=== PATIENT | male | born 1925 | race Caucasian/White ===

== ENCOUNTER 2016-06-09 18:34 | Inpatient (IN) | payer MEDICARE ==
[~2016-06-09] VITALS: Ht 177.8 cm; Wt 84.1 kg
[2016-06-09] MEDS ORDERED: BLOOD PRESSURE PO (19:07)
[2016-06-09] MEDS ORDERED: WARF1 PO (19:07)
[2016-06-09] MEDS ORDERED: DIURETIC PO (19:07)
[2016-06-09 20:03] LABS: INFLUENZA TYPE B NEGATIVE FOR TYPE B (NEGATIVE)
[2016-06-09] MEDS ORDERED: ONDANSETRON HCL 4 MG/2 ML VIAL IVP ONE (20:45)
[2016-06-09] MEDS ORDERED: 0.9% SODIUM CHLORIDE 5 ML NEB SOLUTION NEB ONE (21:57)
[2016-06-09] MEDS ORDERED: ALBUTEROL SULFATE 5 MG/ML 20 ML NEB SOLN [BULK] NEB ONE (22:00)
[2016-06-09] MEDS ORDERED: IPRATROPIUM BROMIDE 0.5 MG/2.5 ML NEB SOLUTION NEB ONE (22:00)
[2016-06-09] MEDS ORDERED: ACETAMINOPHEN 325 MG TABLET PO PRN (22:15)
[2016-06-09] MEDS ORDERED: IPRATROPIUM BROMIDE 0.5 MG/2.5 ML NEB SOLUTION NEB PRN (22:15)
[2016-06-09] MEDS ORDERED: ALBUTEROL SULFATE 2.5 MG/0.5 ML NEB SOLUTION NEB PRN (22:15)
[2016-06-09 22:28] LABS: BASOPHILS # (AUTO) 0.01 K/uL (0.00-0.20); BASOPHILS % (AUTO) 0.2 % (0.0-2.0); EOSINOPHILS # (AUTO) 0.01 K/uL (0.00-0.70); EOSINOPHILS % (AUTO) 0.18 % (1.0-6.0); HEMATOCRIT 41.9 % (41-53); HEMOGLOBIN 13.9 g/dL (13.5-17.5); LYMPHOCYTES # (AUTO) 0.3 K/uL (1.0-4.8); LYMPHOCYTES % (AUTO) 4.5 % (22.0-44.0); MEAN CORPUSCULAR HEMOGLOBIN 30.5 pg (26.0-34.0); MEAN CORPUSCULAR HGB CONC 33.1 G/dL (31.0-37.0); MEAN CORPUSCULAR VOLUME 92 fL (80-100); MONOCYTES # (AUTO) 0.9 K/uL (0.1-1.0); MONOCYTES % (AUTO) 13.6 % (2.0-9.0); NEUTROPHILS # (AUTO) 5.5 K/uL (1.8-7.7); NEUTROPHILS % (AUTO) 81.5 % (40.0-70.0); PLATELET COUNT (AUTO) 119 K/uL (150-450); RED BLOOD CELL COUNT(AUTO) 4.56 MIL/uL (4.50-5.90); RED CELL DISTRIBUTION WIDTH 14.6 % (11.5-14.5); WHITE BLOOD COUNT (AUTO) 6.8 K/uL (4.5-11.0)
[2016-06-09 22:41] LABS: INR 2.2 (0.9-1.1)
[2016-06-09 23:00] LABS: ANION GAP 10 mmol/L (8-16); CALCIUM, TOTAL 8.6 mg/dL (8.8-10.5); CARBON DIOXIDE 28 mmol/L (22-29); CHLORIDE 103 mmol/L (98-107); CREATININE 1.47 mg/dL (0.60-1.30); GLOMERULAR FILTR. RATE CALC 45 mL/min (>60); POTASSIUM 4.1 mmol/L (3.5-5.1); SODIUM SERUM 141 mmol/L (136-145); UREA NITROGEN, BLOOD 30 mg/dL (7-18)
[2016-06-09 23:01] LABS: B-TYPE NATRIURETIC PEPTIDE 560 pg/mL (0-100)
[2016-06-09 23:24] LABS: ALANINE AMINOTRANSFERASE 26 U/L (12-78); ALBUMIN 3.2 g/dL (3.4-5.0); ASPARTATE AMINOTRANSFERASE 39 U/L (15-37); BILIRUBIN,TOTAL 0.6 mg/dL (0.1-1.0); CREATINE KINASE MB 2.2 ng/mL (0-5); CREATINE KINASE, TOTAL 110 U/L (39-308); TOTAL PROTEIN, SERUM 6.4 g/dL (6.4-8.2)
[2016-06-09 23:41] VITALS: BP 112/47
[2016-06-10] MEDS ORDERED: PNEUMOCOCCAL VACCINE POLYVALENT 0.5 ML VIAL [PPSV23] IM ONE (00:30)
[2016-06-10 04:29] VITALS: BP 109/52
[2016-06-10 07:19] LABS: CALCIUM, TOTAL 8.4 mg/dL (8.8-10.5); CREATININE 1.61 mg/dL (0.60-1.30); POTASSIUM 3.6 mmol/L (3.5-5.1)
[2016-06-10 07:21] LABS: BASOPHILS % (AUTO) 0.2 % (0.0-2.0); EOSINOPHILS % (AUTO) 0.1 % (1.0-6.0); HEMATOCRIT 42.2 % (41-53); HEMOGLOBIN 13.8 g/dL (13.5-17.5); LYMPHOCYTES # (AUTO) 0.3 K/uL (1.0-4.8); MEAN CORPUSCULAR HEMOGLOBIN 30.4 pg (26.0-34.0); MEAN CORPUSCULAR HGB CONC 32.7 G/dL (31.0-37.0); MEAN CORPUSCULAR VOLUME 93 fL (80-100); MONOCYTES # (AUTO) 1.1 K/uL (0.1-1.0); MONOCYTES % (AUTO) 19.1 % (2.0-9.0); NEUTROPHILS # (AUTO) 4.1 K/uL (1.8-7.7); NEUTROPHILS % (AUTO) 74.6 % (40.0-70.0); PLATELET COUNT (AUTO) 113 K/uL (150-450); RED BLOOD CELL COUNT(AUTO) 4.54 MIL/uL (4.50-5.90); RED CELL DISTRIBUTION WIDTH 15.3 % (11.5-14.5); WHITE BLOOD COUNT (AUTO) 5.5 K/uL (4.5-11.0)
[2016-06-10 07:36] VITALS: BP 101/58
[2016-06-10] MEDS: DOCUSATE SODIUM 100 MG CAPSULE PO SCH ×2 (09:41→20:50)
[2016-06-10] MEDS: FUROSEMIDE 20 MG/2 ML VIAL IVP SCH ×2 (09:41→20:50)
[2016-06-10] MEDS: PANTOPRAZOLE SODIUM 40 MG DR TABLET PO SCH (09:41)
[2016-06-10] MEDS: NITROGLYCERIN 2% (1 GM=INCH) PACKET TP SCH ×3 (09:41→23:42)
[2016-06-10 11:34] VITALS: BP 98/46
[2016-06-10] MEDS: LISINOPRIL 5 MG TABLET PO SCH (13:45)
[2016-06-10] MEDS ORDERED: ONDANSETRON HCL 4 MG/2 ML VIAL IVP PRN (15:30)
[2016-06-10 15:48] VITALS: BP 123/75
[2016-06-10 19:48] VITALS: BP 116/47
[2016-06-10] MEDS: WARFARIN SODIUM 1 MG TABLET PO SCH (20:50)
[2016-06-10 23:38] VITALS: BP 130/54
[2016-06-11 05:00] VITALS: BP 126/73
[2016-06-11 06:47] LABS: BASOPHILS % (AUTO) 0.1 % (0.0-2.0); EOSINOPHILS % (AUTO) 0.7 % (1.0-6.0); HEMATOCRIT 43.9 % (41-53); LYMPHOCYTES # (AUTO) 0.5 K/uL (1.0-4.8); LYMPHOCYTES % (AUTO) 7.7 % (22.0-44.0); MEAN CORPUSCULAR HEMOGLOBIN 29.7 pg (26.0-34.0); MEAN CORPUSCULAR HGB CONC 31.8 G/dL (31.0-37.0); MEAN CORPUSCULAR VOLUME 93 fL (80-100); MONOCYTES # (AUTO) 0.9 K/uL (0.1-1.0); MONOCYTES % (AUTO) 16.1 % (2.0-9.0); NEUTROPHILS # (AUTO) 4.4 K/uL (1.8-7.7); NEUTROPHILS % (AUTO) 75.4 % (40.0-70.0); PLATELET COUNT (AUTO) 107 K/uL (150-450); RED CELL DISTRIBUTION WIDTH 15.2 % (11.5-14.5); WHITE BLOOD COUNT (AUTO) 5.9 K/uL (4.5-11.0)
[2016-06-11 07:06] LABS: ALBUMIN 3.1 g/dL (3.4-5.0); BILIRUBIN,TOTAL 0.7 mg/dL (0.1-1.0); CALCIUM, TOTAL 8.6 mg/dL (8.8-10.5); CREATININE 1.4 mg/dL (0.60-1.30); MAGNESIUM 1.8 mg/dL (1.80-2.40); POTASSIUM 4.2 mmol/L (3.5-5.1); TOTAL PROTEIN, SERUM 6.3 g/dL (6.4-8.2)
[2016-06-11 07:22] VITALS: BP 132/97
[2016-06-11] MEDS: DOCUSATE SODIUM 100 MG CAPSULE PO SCH ×2 (08:08→20:06)
[2016-06-11] MEDS: PANTOPRAZOLE SODIUM 40 MG DR TABLET PO SCH (08:09)
[2016-06-11] MEDS: FUROSEMIDE 20 MG/2 ML VIAL IVP SCH ×2 (08:09→20:06)
[2016-06-11] MEDS: NITROGLYCERIN 2% (1 GM=INCH) PACKET TP SCH ×3 (08:09→23:54)
[2016-06-11] MEDS: LISINOPRIL 5 MG TABLET PO SCH (08:10)
[2016-06-11 11:18] VITALS: BP 139/74
[2016-06-11 12:54] LABS: PHOSPHORUS 3.1 mg/dL (2.5-4.9)
[2016-06-11 15:56] VITALS: BP 119/59
[2016-06-11 19:55] VITALS: BP 129/56
[2016-06-11] MEDS: WARFARIN SODIUM 1 MG TABLET PO SCH (20:06)
[2016-06-11 23:59] VITALS: BP 141/69
[2016-06-12 03:59] VITALS: BP 136/71
[2016-06-12 07:16] VITALS: BP 126/55
[2016-06-12 07:18] LABS: CREATINE KINASE MB 6.2 ng/mL (0-5)
[2016-06-12] MEDS: DOCUSATE SODIUM 100 MG CAPSULE PO SCH ×2 (08:49→21:55)
[2016-06-12] MEDS: FUROSEMIDE 20 MG/2 ML VIAL IVP SCH ×2 (08:50→21:55)
[2016-06-12] MEDS: PANTOPRAZOLE SODIUM 40 MG DR TABLET PO SCH (08:50)
[2016-06-12] MEDS: NITROGLYCERIN 2% (1 GM=INCH) PACKET TP SCH ×2 (08:50→15:58)
[2016-06-12] MEDS: LISINOPRIL 5 MG TABLET PO SCH (08:50)
[2016-06-12 11:07] VITALS: BP 147/67
[2016-06-12] MEDS ORDERED: LEVALBUTEROL HCL 0.63 MG/3 ML NEB SOLUTION NEB PRN (12:00)
[2016-06-12 15:28] VITALS: BP 129/53
[2016-06-12] MEDS ORDERED: 0.9% SODIUM CHLORIDE 5 ML NEB SOLUTION NEB ONE (19:03)
[2016-06-12] MEDS: IPRATROPIUM BROMIDE 0.5 MG/2.5 ML NEB SOLUTION NEB PRN (19:07)
[2016-06-12 19:21] VITALS: BP 128/51
[2016-06-12] MEDS: TIOTROPIUM BROMIDE 18 MCG/INH HANDIHALER [5] IH SCH (21:55)
[2016-06-12] MEDS: WARFARIN SODIUM 1 MG TABLET PO SCH (21:55)
[2016-06-12] MEDS: BUDESONIDE 0.5 MG/2 ML NEB SOLUTION NEB SCH (23:07)
[2016-06-12 23:23] VITALS: BP 121/53
[2016-06-13] MEDS: NITROGLYCERIN 2% (1 GM=INCH) PACKET TP SCH ×4 (00:07→23:40)
[2016-06-13] MEDS: BENZONATATE 100 MG CAPSULE PO SCH ×4 (00:08→23:42)
[2016-06-13] MEDS: MethylPREDNISolone SOD SUCC 40 MG/ML VIAL IVP SCH ×4 (00:08→23:42)
[2016-06-13 04:10] VITALS: BP 111/61
[2016-06-13 06:17] LABS: BASOPHILS # (AUTO) 0.01 K/uL (0.00-0.20); BASOPHILS % (AUTO) 0.1 % (0.0-2.0); EOSINOPHILS # (AUTO) 0.01 K/uL (0.00-0.70); EOSINOPHILS % (AUTO) 0.22 % (1.0-6.0); HEMATOCRIT 44.3 % (41-53); HEMOGLOBIN 14.4 g/dL (13.5-17.5); LYMPHOCYTES # (AUTO) 0.3 K/uL (1.0-4.8); LYMPHOCYTES % (AUTO) 6.1 % (22.0-44.0); MEAN CORPUSCULAR HEMOGLOBIN 29.8 pg (26.0-34.0); MEAN CORPUSCULAR HGB CONC 32.4 G/dL (31.0-37.0); MEAN CORPUSCULAR VOLUME 92 fL (80-100); MONOCYTES # (AUTO) 0.1 K/uL (0.1-1.0); MONOCYTES % (AUTO) 3.2 % (2.0-9.0); PLATELET COUNT (AUTO) 107 K/uL (150-450); RED BLOOD CELL COUNT(AUTO) 4.82 MIL/uL (4.50-5.90); RED CELL DISTRIBUTION WIDTH 15.3 % (11.5-14.5); WHITE BLOOD COUNT (AUTO) 4.4 K/uL (4.5-11.0)
[2016-06-13 06:30] LABS: INR 1.6 (0.9-1.1); PROTHROMBIN TIME 17.1 SEC (9.4-11.6)
[2016-06-13 06:45] LABS: CALCIUM, TOTAL 8.5 mg/dL (8.8-10.5); CREATININE 1.41 mg/dL (0.60-1.30); POTASSIUM 4.4 mmol/L (3.5-5.1)
[2016-06-13 06:55] LABS: NEUTROPHILS % (AUTO) 90.4 % (40.0-70.0)
[2016-06-13 07:41] VITALS: BP 146/80
[2016-06-13] MEDS: FUROSEMIDE 20 MG/2 ML VIAL IVP SCH ×2 (08:34→20:01)
[2016-06-13] MEDS: TIOTROPIUM BROMIDE 18 MCG/INH HANDIHALER [5] IH SCH (08:35)
[2016-06-13] MEDS: DOCUSATE SODIUM 100 MG CAPSULE PO SCH ×2 (08:37→20:07)
[2016-06-13] MEDS: PANTOPRAZOLE SODIUM 40 MG DR TABLET PO SCH (08:38)
[2016-06-13] MEDS: LISINOPRIL 5 MG TABLET PO SCH (08:39)
[2016-06-13] MEDS: BUDESONIDE 0.5 MG/2 ML NEB SOLUTION NEB SCH ×2 (09:51→20:13)
[2016-06-13 09:58] LABS: ABG A-A DIFF O2 46.3 mmHg (10-20.0); ABG BASE EXCESS 3.9 mmol/L (-2.0-3.0); ABG OXYHEMOGLOBIN 85.1 % (94.0-100.0); ABG PCO2 46 mmHg (35-45); ABG PH 7.408 (7.35-7.450); TEMPERATURE, FAHRENHEIT, BG 98.6 FAHREN (96.0-98.6)
[2016-06-13 09:59] LABS: ALLEN TEST, BLOOD GAS POSITIVE
[2016-06-13 11:21] LABS: RBC MORPHOLOGY COMMENT NORMAL RBC MORPH
[2016-06-13 11:34] VITALS: BP 154/70
[2016-06-13 15:51] VITALS: BP 153/71
[2016-06-13 19:25] VITALS: BP 141/69
[2016-06-13] MEDS: WARFARIN SODIUM 1 MG TABLET PO SCH (20:01)
[2016-06-13 22:59] VITALS: BP 125/52
[2016-06-14 04:07] VITALS: BP 117/60
[2016-06-14 07:11] LABS: HEMATOCRIT 46.2 % (41-53); HEMOGLOBIN 14.8 g/dL (13.5-17.5); MEAN CORPUSCULAR HEMOGLOBIN 29.8 pg (26.0-34.0); MEAN CORPUSCULAR HGB CONC 32.1 G/dL (31.0-37.0); MEAN CORPUSCULAR VOLUME 93 fL (80-100); RED BLOOD CELL COUNT(AUTO) 4.97 MIL/uL (4.50-5.90); RED CELL DISTRIBUTION WIDTH 15.6 % (11.5-14.5); WHITE BLOOD COUNT (AUTO) 5.8 K/uL (4.5-11.0)
[2016-06-14 07:29] LABS: PLATELET COUNT (AUTO) 109 K/uL (150-450)
[2016-06-14 07:32] LABS: CALCIUM, TOTAL 8.7 mg/dL (8.8-10.5); CREATININE 1.35 mg/dL (0.60-1.30); POTASSIUM 4.4 mmol/L (3.5-5.1)
[2016-06-14 07:34] LABS: INR 1.8 (0.9-1.1); PROTHROMBIN TIME 18.9 SEC (9.4-11.6)
[2016-06-14 07:58] VITALS: BP 154/79
[2016-06-14] MEDS: NITROGLYCERIN 2% (1 GM=INCH) PACKET TP SCH ×3 (08:00→23:36)
[2016-06-14] MEDS: MethylPREDNISolone SOD SUCC 40 MG/ML VIAL IVP SCH (08:00)
[2016-06-14] MEDS: TIOTROPIUM BROMIDE 18 MCG/INH HANDIHALER [5] IH SCH (08:22)
[2016-06-14] MEDS: BENZONATATE 100 MG CAPSULE PO SCH ×3 (08:23→23:35)
[2016-06-14] MEDS: PANTOPRAZOLE SODIUM 40 MG DR TABLET PO SCH (08:24)
[2016-06-14 08:26] LABS: BAND NEUTROPHILS % (MANUAL) 24 % (1-5); LYMPHOCYTES % (MANUAL) 11 % (22-44); TOTAL CELLS COUNTED 100
[2016-06-14] MEDS: PredniSONE 20 MG TABLET PO SCH (08:26)
[2016-06-14 08:27] LABS: RBC MORPHOLOGY COMMENT NORMAL RBC MORPH
[2016-06-14] MEDS: DOCUSATE SODIUM 100 MG CAPSULE PO SCH ×2 (08:30→19:48)
[2016-06-14] MEDS: FUROSEMIDE 20 MG/2 ML VIAL IVP SCH ×2 (08:30→19:47)
[2016-06-14] MEDS: BUDESONIDE 0.5 MG/2 ML NEB SOLUTION NEB SCH ×2 (09:56→20:51)
[2016-06-14 11:53] VITALS: BP 129/55
[2016-06-14] MEDS: LISINOPRIL 5 MG TABLET PO SCH (12:58)
[2016-06-14 16:06] VITALS: BP 127/60
[2016-06-14] MEDS: IPRATROPIUM BROMIDE 0.5 MG/2.5 ML NEB SOLUTION NEB PRN (16:45)
[2016-06-14 19:19] VITALS: BP 127/64
[2016-06-14] MEDS: WARFARIN SODIUM 1 MG TABLET PO SCH (19:48)
[2016-06-14 23:51] VITALS: BP 128/67
[2016-06-15 04:35] VITALS: BP 139/86
[2016-06-15 06:44] LABS: BASOPHILS % (AUTO) 0.1 % (0.0-2.0); EOSINOPHILS % (AUTO) 0 % (1.0-6.0); HEMATOCRIT 45.5 % (41-53); HEMOGLOBIN 14.7 g/dL (13.5-17.5); LYMPHOCYTES # (AUTO) 0.5 K/uL (1.0-4.8); LYMPHOCYTES % (AUTO) 6.1 % (22.0-44.0); MEAN CORPUSCULAR HGB CONC 32.3 G/dL (31.0-37.0); MEAN CORPUSCULAR VOLUME 93 fL (80-100); MONOCYTES # (AUTO) 0.7 K/uL (0.1-1.0); NEUTROPHILS # (AUTO) 7.3 K/uL (1.8-7.7); PLATELET COUNT (AUTO) 117 K/uL (150-450); WHITE BLOOD COUNT (AUTO) 8.6 K/uL (4.5-11.0)
[2016-06-15 06:50] LABS: INR 1.7 (0.9-1.1); PROTHROMBIN TIME 18.4 SEC (9.4-11.6)
[2016-06-15 07:03] LABS: CALCIUM, TOTAL 8.6 mg/dL (8.8-10.5); CREATININE 1.31 mg/dL (0.60-1.30); POTASSIUM 4.3 mmol/L (3.5-5.1)
[2016-06-15 07:07] LABS: NEUTROPHILS % (AUTO) 85.8 % (40.0-70.0)
[2016-06-15 07:08] LABS: RBC MORPHOLOGY COMMENT NORMAL RBC MORPH
[2016-06-15 07:13] VITALS: BP 140/61
[2016-06-15] MEDS: NITROGLYCERIN 2% (1 GM=INCH) PACKET TP SCH ×3 (08:00→23:40)
[2016-06-15] MEDS: BENZONATATE 100 MG CAPSULE PO SCH ×3 (08:10→23:41)
[2016-06-15] MEDS: FUROSEMIDE 20 MG/2 ML VIAL IVP SCH (08:10)
[2016-06-15] MEDS: TIOTROPIUM BROMIDE 18 MCG/INH HANDIHALER [5] IH SCH (08:10)
[2016-06-15] MEDS: PredniSONE 20 MG TABLET PO SCH (08:11)
[2016-06-15] MEDS: LISINOPRIL 5 MG TABLET PO SCH (08:11)
[2016-06-15] MEDS: PANTOPRAZOLE SODIUM 40 MG DR TABLET PO SCH (08:11)
[2016-06-15] MEDS: DOCUSATE SODIUM 100 MG CAPSULE PO SCH ×2 (09:00→20:57)
[2016-06-15] MEDS: BUDESONIDE 0.5 MG/2 ML NEB SOLUTION NEB SCH ×2 (09:25→21:52)
[2016-06-15 11:22] VITALS: BP 154/80
[2016-06-15 15:10] VITALS: BP 151/69
[2016-06-15 19:28] VITALS: BP 148/68
[2016-06-15] MEDS ORDERED: 0.9% SODIUM CHLORIDE 5 ML NEB SOLUTION NEB ONE (21:45)
[2016-06-15 23:49] VITALS: BP 138/84
[2016-06-16] VITALS (17 sets, daily range): BP systolic 124–185; BP diastolic 66–92
[2016-06-16 05:50] LABS: BASOPHILS # (AUTO) 0.02 K/uL (0.00-0.20); BASOPHILS % (AUTO) 0.4 % (0.0-2.0); EOSINOPHILS # (AUTO) 0.01 K/uL (0.00-0.70); EOSINOPHILS % (AUTO) 0.09 % (1.0-6.0); HEMATOCRIT 47.5 % (41-53); HEMOGLOBIN 15.4 g/dL (13.5-17.5); LYMPHOCYTES # (AUTO) 0.7 K/uL (1.0-4.8); LYMPHOCYTES % (AUTO) 10.5 % (22.0-44.0); MEAN CORPUSCULAR HEMOGLOBIN 30.1 pg (26.0-34.0); MEAN CORPUSCULAR HGB CONC 32.4 G/dL (31.0-37.0); MEAN CORPUSCULAR VOLUME 93 fL (80-100); MONOCYTES # (AUTO) 0.9 K/uL (0.1-1.0); MONOCYTES % (AUTO) 12.5 % (2.0-9.0); NEUTROPHILS # (AUTO) 5.4 K/uL (1.8-7.7); NEUTROPHILS % (AUTO) 76.6 % (40.0-70.0); PLATELET COUNT (AUTO) 115 K/uL (150-450); RED CELL DISTRIBUTION WIDTH 15.3 % (11.5-14.5)
[2016-06-16 05:59] LABS: INR 1.6 (0.9-1.1); PROTHROMBIN TIME 16.4 SEC (9.4-11.6)
[2016-06-16 06:06] LABS: ALANINE AMINOTRANSFERASE 37 U/L (12-78); ALBUMIN 2.9 g/dL (3.4-5.0); ANION GAP 4 mmol/L (8-16); ASPARTATE AMINOTRANSFERASE 49 U/L (15-37); CALCIUM, TOTAL 8.6 mg/dL (8.8-10.5); CARBON DIOXIDE 37 mmol/L (22-29); CHLORIDE 103 mmol/L (98-107); CREATININE 1.12 mg/dL (0.60-1.30); GLOMERULAR FILTR. RATE CALC > 60 mL/min (>60); SODIUM SERUM 144 mmol/L (136-145); TOTAL PROTEIN, SERUM 6.2 g/dL (6.4-8.2); UREA NITROGEN, BLOOD 39 mg/dL (7-18)
[2016-06-16] MEDS: BENZONATATE 100 MG CAPSULE PO SCH ×3 (08:00→23:17)
[2016-06-16] MEDS: BUDESONIDE 0.5 MG/2 ML NEB SOLUTION NEB SCH ×2 (08:02→20:41)
[2016-06-16] MEDS: NITROGLYCERIN 2% (1 GM=INCH) PACKET TP SCH ×3 (08:05→23:17)
[2016-06-16] MEDS: TIOTROPIUM BROMIDE 18 MCG/INH HANDIHALER [5] IH SCH (08:05)
[2016-06-16] MEDS: PANTOPRAZOLE SODIUM 40 MG DR TABLET PO SCH (08:14)
[2016-06-16] MEDS: DOCUSATE SODIUM 100 MG CAPSULE PO SCH ×2 (08:14→22:46)
[2016-06-16] MEDS: PredniSONE 20 MG TABLET PO SCH (08:14)
[2016-06-16] MEDS ORDERED: PHYTONADIONE 1 MG/0.5 ML AMP IM ONE (08:15)
[2016-06-16] MEDS ORDERED: PHYTONADIONE 1 MG/0.5 ML AMP SQ ONE (08:30)
[2016-06-16] MEDS ORDERED: SODIUM BICARBONATE 150 MEQ in DEXTROSE 5%-WATER 850 ML IV ONE (10:00)
[2016-06-16] MEDS ORDERED: LIDOCAINE HCL/PF 1% 30 ML VIAL ONE (13:05)
[2016-06-16] MEDS ORDERED: IOHEXOL 300 MG/ML 150 ML VIAL ONE (13:05)
[2016-06-16] MEDS ORDERED: HEPARIN SODIUM 1000 UNITS/NS 1,000 ML ONE (13:05)
[2016-06-16] MEDS ORDERED: SODIUM BICARBONATE 50 MEQ/50 ML VIAL ONE (13:05)
[2016-06-16] MEDS ORDERED: HEPARIN SODIUM 2,000 UNITS in HEPARIN SODIUM 1000 UNITS/NS 1,000 ML IARTER ONE (13:27)
[2016-06-16] MEDS ORDERED: SODIUM CHLORIDE 0.9% 500 ML IV ONE (13:27)
[2016-06-16] MEDS ORDERED: LIDOCAINE 1% 30 ML/SOD BICARB 8.4% 4 ML SQ ONE (13:30)
[2016-06-16] MEDS ORDERED: IOHEXOL 300 MG/ML 150 ML VIAL IARTER ONE (13:30)
[2016-06-16] MEDS ORDERED: IOHEXOL 300 MG/ML 100 ML VIAL ONE ×2 (13:39→13:51)
[2016-06-16] MEDS ORDERED: ASPIRIN 81 MG CHEWABLE TABLET ONE (13:50)
[2016-06-16] MEDS ORDERED: VERAPAMIL HCL 2.5 MG/ML 2 ML VIAL ONE (13:50)
[2016-06-16] MEDS ORDERED: NITROGLYCERIN 50 MG/D5% WATER 250 ML ONE (13:51)
[2016-06-16] MEDS ORDERED: IOHEXOL 300 MG/ML 50 ML VIAL ONE (13:51)
[2016-06-16] MEDS ORDERED: TICAGRELOR 90 MG TABLET ONE (13:51)
[2016-06-16] MEDS ORDERED: AMIODARONE HCL 50 MG/ML 3 ML VIAL ONE (13:55)
[2016-06-16] MEDS ORDERED: ASPIRIN 81 MG CHEWABLE TABLET PO ONE (14:00)
[2016-06-16] MEDS ORDERED: TICAGRELOR 90 MG TABLET PO ONE (14:00)
[2016-06-16] MEDS ORDERED: AMIODARONE HCL 360 MG in DEXTROSE 5%-WATER 242.8 ML IV ONE (14:00)
[2016-06-16] MEDS ORDERED: HEPARIN SODIUM,PORCINE 5,000 UNITS/ML VIAL IVP ONE ×2 (14:00→14:45)
[2016-06-16] MEDS ORDERED: IOHEXOL 300 MG/ML 100 ML VIAL IARTER ONE (14:30)
[2016-06-16] MEDS ORDERED: AMIODARONE HCL 150 MG in DEXTROSE 5%-WATER 97 ML IV ONE (14:30)
[2016-06-16] MEDS ORDERED: IOHEXOL 300 MG/ML 50 ML VIAL IARTER ONE (14:30)
[2016-06-16] MEDS ORDERED: HEPARIN SODIUM 25000 UNITS/D5W 250 ML IV PRN (14:37)
[2016-06-16] MEDS ORDERED: HEPARIN SODIUM,PORCINE 5,000 UNITS/ML VIAL IVP PRN ×2 (14:45)
[2016-06-16 16:28] LABS: EOSINOPHILS % (AUTO) 0.2 % (1.0-6.0); HEMATOCRIT 48.8 % (41-53); HEMOGLOBIN 15.8 g/dL (13.5-17.5); LYMPHOCYTES # (AUTO) 0.8 K/uL (1.0-4.8); LYMPHOCYTES % (AUTO) 9.7 % (22.0-44.0); MEAN CORPUSCULAR HEMOGLOBIN 29.9 pg (26.0-34.0); MEAN CORPUSCULAR HGB CONC 32.4 G/dL (31.0-37.0); MEAN CORPUSCULAR VOLUME 92 fL (80-100); MONOCYTES # (AUTO) 0.9 K/uL (0.1-1.0); MONOCYTES % (AUTO) 11.6 % (2.0-9.0); NEUTROPHILS # (AUTO) 6.3 K/uL (1.8-7.7); NEUTROPHILS % (AUTO) 78.5 % (40.0-70.0); PLATELET COUNT (AUTO) 126 K/uL (150-450); RED BLOOD CELL COUNT(AUTO) 5.28 MIL/uL (4.50-5.90); WHITE BLOOD COUNT (AUTO) 8.1 K/uL (4.5-11.0)
[2016-06-16 16:47] LABS: INR 1.6 (0.9-1.1); PROTHROMBIN TIME 16.5 SEC (9.4-11.6)
[2016-06-16] MEDS ORDERED: AMIODARONE HCL 540 MG in DEXTROSE 5%-WATER 239.2 ML IV ONE (20:00)
[2016-06-16] MEDS ORDERED: TICAGRELOR 90 MG TABLET PO SCH (21:00)
[2016-06-17] VITALS (8 sets, daily range): BP systolic 130–163; BP diastolic 54–96
[2016-06-17] MEDS ORDERED: DIGOXIN 250 MCG/ML 2 ML AMP IVP ONE (01:15)
[2016-06-17 05:56] LABS: ANION GAP 4 mmol/L (8-16); CALCIUM, TOTAL 8.6 mg/dL (8.8-10.5); CARBON DIOXIDE 36 mmol/L (22-29); CHLORIDE 103 mmol/L (98-107); CREATINE KINASE MB 3.7 ng/mL (0-5); CREATINE KINASE, TOTAL 80 U/L (39-308); CREATININE 1.15 mg/dL (0.60-1.30); GLOMERULAR FILTR. RATE CALC 60 mL/min (>60); POTASSIUM 3.6 mmol/L (3.5-5.1); SODIUM SERUM 143 mmol/L (136-145); UREA NITROGEN, BLOOD 31 mg/dL (7-18)
[2016-06-17 06:53] LABS: INR 1.5 (0.9-1.1); PROTHROMBIN TIME 15.6 SEC (9.4-11.6)
[2016-06-17 07:44] LABS: BASOPHILS % (AUTO) 0.3 % (0.0-2.0); EOSINOPHILS % (AUTO) 0.4 % (1.0-6.0); HEMATOCRIT 46.4 % (41-53); HEMOGLOBIN 15.1 g/dL (13.5-17.5); LYMPHOCYTES # (AUTO) 0.4 K/uL (1.0-4.8); LYMPHOCYTES % (AUTO) 4.1 % (22.0-44.0); MEAN CORPUSCULAR HGB CONC 32.5 G/dL (31.0-37.0); MEAN CORPUSCULAR VOLUME 92 fL (80-100); MONOCYTES # (AUTO) 1.1 K/uL (0.1-1.0); MONOCYTES % (AUTO) 11.7 % (2.0-9.0); NEUTROPHILS # (AUTO) 8.1 K/uL (1.8-7.7); NEUTROPHILS % (AUTO) 83.5 % (40.0-70.0); PLATELET COUNT (AUTO) 126 K/uL (150-450); RED BLOOD CELL COUNT(AUTO) 5.03 MIL/uL (4.50-5.90); RED CELL DISTRIBUTION WIDTH 14.9 % (11.5-14.5); WHITE BLOOD COUNT (AUTO) 9.7 K/uL (4.5-11.0)
[2016-06-17] MEDS: DOCUSATE SODIUM 100 MG CAPSULE PO SCH ×2 (08:14→21:21)
[2016-06-17] MEDS: PANTOPRAZOLE SODIUM 40 MG DR TABLET PO SCH (08:44)
[2016-06-17] MEDS: ASPIRIN 81 MG CHEWABLE TABLET PO SCH (08:44)
[2016-06-17] MEDS: BENZONATATE 100 MG CAPSULE PO SCH ×2 (08:45→15:59)
[2016-06-17] MEDS: NITROGLYCERIN 2% (1 GM=INCH) PACKET TP SCH ×2 (08:45→16:00)
[2016-06-17] MEDS: PredniSONE 10 MG TABLET PO SCH (08:45)
[2016-06-17] MEDS: CLOPIDOGREL BISULFATE 75 MG TABLET PO SCH (08:51)
[2016-06-17] MEDS: TIOTROPIUM BROMIDE 18 MCG/INH HANDIHALER [5] IH SCH (09:00)
[2016-06-17] MEDS: BUDESONIDE 0.5 MG/2 ML NEB SOLUTION NEB SCH ×2 (09:10→20:25)
[2016-06-17] MEDS: AMIODARONE HCL 200 MG TABLET PO SCH (13:15)
[2016-06-17] MEDS ORDERED: AMIODARONE HCL 750 MG in DEXTROSE 5%-WATER 485 ML IV SCH (14:00)
[2016-06-17 15:17] LABS: APPEARANCE,URINE CLEAR (CLEAR); GLUCOSE, URINE (UA) NEGATIVE (NEGATIVE); KETONES,URINE 15 mg/dL (NEGATIVE); LEUKOCYTE ESTERASE ,URINE NEGATIVE (NEGATIVE); OCCULT BLOOD,URINE TRACE (NEGATIVE); PROTEIN,URINE SEE CONFIRM (NEGATIVE)
[2016-06-17 15:21] LABS: ADD UA MICROSCOPIC YES
[2016-06-17 15:25] LABS: SULFOSALICYLIC ACID,URINE 2+ (Negative)
[2016-06-17 15:28] LABS: SQUAMOUS EPITHELIAL CELL,UR Few /LPF (None Seen)
[2016-06-17 15:29] LABS: RBC,URINE 0-2 /HPF (0-2); WBC,URINE 0-2 /HPF (0-5)
[2016-06-17] MEDS ORDERED: WARFARIN SODIUM 2 MG TABLET PO ONE (21:00)
[2016-06-18] VITALS (17 sets, daily range): BP systolic 113–166; BP diastolic 54–86
[2016-06-18] MEDS: BENZONATATE 100 MG CAPSULE PO SCH ×3 (00:01→16:19)
[2016-06-18] MEDS: NITROGLYCERIN 2% (1 GM=INCH) PACKET TP SCH ×3 (00:02→16:20)
[2016-06-18] MEDS ORDERED: MIDAZOLAM HCL 2 MG/2 ML VIAL IVP ONE ×2 (00:41→00:42)
[2016-06-18] MEDS ORDERED: KETAMINE HCL 50 MG/ML 10 ML VIAL IVP ONE (00:41)
[2016-06-18] MEDS ORDERED: FentaNYL CITRATE-PF 100 MCG/2 ML VIAL IVP ONE (00:42)
[2016-06-18] MEDS ORDERED: NEOSTIGMINE METHYLSULFATE 1 MG/ML 10 ML VIAL IVP ONE (00:42)
[2016-06-18] MEDS ORDERED: KETOROLAC TROMETHAMINE 60 MG/2 ML VIAL IM ONE (00:42)
[2016-06-18] MEDS ORDERED: LIDOCAINE HCL/PF 2% 5 ML VIAL IM ONE (00:42)
[2016-06-18] MEDS ORDERED: ONDANSETRON HCL 4 MG/2 ML VIAL IVP ONE (00:42)
[2016-06-18] MEDS ORDERED: ROCURONIUM BROMIDE 10 MG/ML 5 ML VIAL IVP ONE (00:42)
[2016-06-18] MEDS ORDERED: PHENYLEPHRINE HCL 10 MG/ML VIAL IVP ONE (00:42)
[2016-06-18] MEDS ORDERED: EPHEDrine SULFATE 50 MG/ML VIAL IM ONE (00:42)
[2016-06-18] MEDS ORDERED: GLYCOPYRROLATE 0.2 MG/ML VIAL IM ONE (00:42)
[2016-06-18] MEDS ORDERED: PROPOFOL 1% 20 ML VIAL IVP ONE (00:42)
[2016-06-18] MEDS: AMIODARONE HCL 200 MG TABLET PO SCH ×2 (05:34→20:27)
[2016-06-18 06:20] LABS: EOSINOPHILS % (AUTO) 1.8 % (1.0-6.0); HEMATOCRIT 48.1 % (41-53); HEMOGLOBIN 15.6 g/dL (13.5-17.5); LYMPHOCYTES # (AUTO) 0.5 K/uL (1.0-4.8); LYMPHOCYTES % (AUTO) 5.7 % (22.0-44.0); MEAN CORPUSCULAR HEMOGLOBIN 30.1 pg (26.0-34.0); MEAN CORPUSCULAR HGB CONC 32.4 G/dL (31.0-37.0); MEAN CORPUSCULAR VOLUME 93 fL (80-100); MONOCYTES # (AUTO) 0.9 K/uL (0.1-1.0); MONOCYTES % (AUTO) 9.9 % (2.0-9.0); NEUTROPHILS # (AUTO) 7.5 K/uL (1.8-7.7); NEUTROPHILS % (AUTO) 82.6 % (40.0-70.0); RED BLOOD CELL COUNT(AUTO) 5.18 MIL/uL (4.50-5.90); RED CELL DISTRIBUTION WIDTH 14.7 % (11.5-14.5)
[2016-06-18 07:01] LABS: BILIRUBIN,TOTAL 2.4 mg/dL (0.1-1.0); CALCIUM, TOTAL 8.5 mg/dL (8.8-10.5); CREATININE 1.27 mg/dL (0.60-1.30); POTASSIUM 3.6 mmol/L (3.5-5.1); TOTAL PROTEIN, SERUM 6.5 g/dL (6.4-8.2)
[2016-06-18] MEDS: DOCUSATE SODIUM 100 MG CAPSULE PO SCH ×2 (08:46→20:27)
[2016-06-18] MEDS: PredniSONE 10 MG TABLET PO SCH (08:46)
[2016-06-18] MEDS: PANTOPRAZOLE SODIUM 40 MG DR TABLET PO SCH (08:46)
[2016-06-18] MEDS: ASPIRIN 81 MG CHEWABLE TABLET PO SCH (08:46)
[2016-06-18] MEDS: CLOPIDOGREL BISULFATE 75 MG TABLET PO SCH (08:47)
[2016-06-18] MEDS: BUDESONIDE 0.5 MG/2 ML NEB SOLUTION NEB SCH ×2 (09:28→21:54)
[2016-06-18 09:37] LABS: INR 1.1 (0.9-1.1); PROTHROMBIN TIME 12.1 SEC (9.4-11.6)
[2016-06-18 10:56] LABS: PLATELET COUNT (AUTO) 120 K/uL (150-450)
[2016-06-18] MEDS ORDERED: LIDOCAINE HCL/PF 1% 30 ML VIAL ONE (12:57)
[2016-06-18] MEDS ORDERED: IOHEXOL 300 MG/ML 50 ML VIAL ONE (12:57)
[2016-06-18] MEDS ORDERED: SODIUM BICARBONATE 50 MEQ/50 ML VIAL ONE (12:57)
[2016-06-18] MEDS ORDERED: LIDOCAINE 1% 30 ML/SOD BICARB 8.4% 4 ML SQ ONE (13:45)
[2016-06-18] MEDS ORDERED: DIGOXIN 250 MCG/ML 2 ML AMP ONE (14:24)
[2016-06-18] MEDS ORDERED: OXYGEN THERAPY IH SCH (15:15)
[2016-06-18] MEDS ORDERED: HYDROmorphone 2 MG/ML SYRINGE IVP PRN (15:15)
[2016-06-18] MEDS ORDERED: MEPERIDINE-PF 25 MG/ML SYRINGE IVP PRN (15:15)
[2016-06-18] MEDS ORDERED: FentaNYL CITRATE-PF 100 MCG/2 ML VIAL IVP PRN (15:15)
[2016-06-18] MEDS ORDERED: SODIUM CHLORIDE 0.9% 100 ML ONE (15:28)
[2016-06-18] MEDS: METOPROLOL SUCCINATE 25 MG ER TABLET PO SCH (16:18)
[2016-06-18] MEDS: TIOTROPIUM BROMIDE 18 MCG/INH HANDIHALER [5] IH SCH (16:18)
[2016-06-18] MEDS ORDERED: WARFARIN SODIUM 3 MG TABLET PO ONE (17:00)
[2016-06-18] MEDS ORDERED: 0.9% SODIUM CHLORIDE 10 ML SYRINGE IVP PRN (20:00)
[2016-06-18] MEDS: CeFAZolin 1 GM/DEXTROSE 50 ML IV SCH (20:01)
[2016-06-19] MEDS: BENZONATATE 100 MG CAPSULE PO SCH ×3 (00:57→16:16)
[2016-06-19] MEDS: NITROGLYCERIN 2% (1 GM=INCH) PACKET TP SCH ×3 (00:57→16:16)
[2016-06-19] MEDS: CeFAZolin 1 GM/DEXTROSE 50 ML IV SCH ×2 (01:30→08:29)
[2016-06-19 05:36] VITALS: BP 154/72
[2016-06-19 06:55] LABS: EOSINOPHILS # (AUTO) 0.25 K/uL (0.00-0.70); EOSINOPHILS % (AUTO) 2.73 % (1.0-6.0); HEMATOCRIT 41.7 % (41-53); HEMOGLOBIN 13.8 g/dL (13.5-17.5); LYMPHOCYTES # (AUTO) 0.6 K/uL (1.0-4.8); LYMPHOCYTES % (AUTO) 6.4 % (22.0-44.0); MEAN CORPUSCULAR HEMOGLOBIN 30.4 pg (26.0-34.0); MEAN CORPUSCULAR HGB CONC 33.1 G/dL (31.0-37.0); MEAN CORPUSCULAR VOLUME 92 fL (80-100); MONOCYTES # (AUTO) 0.9 K/uL (0.1-1.0); NEUTROPHILS # (AUTO) 7.4 K/uL (1.8-7.7); NEUTROPHILS % (AUTO) 80.9 % (40.0-70.0); RED BLOOD CELL COUNT(AUTO) 4.55 MIL/uL (4.50-5.90); RED CELL DISTRIBUTION WIDTH 14.2 % (11.5-14.5); WHITE BLOOD COUNT (AUTO) 9.2 K/uL (4.5-11.0)
[2016-06-19 07:12] LABS: INR 1.3 (0.9-1.1); PROTHROMBIN TIME 13.3 SEC (9.4-11.6)
[2016-06-19 07:17] VITALS: BP 127/79
[2016-06-19 07:20] LABS: ALBUMIN 2.5 g/dL (3.4-5.0); BILIRUBIN,TOTAL 1.1 mg/dL (0.1-1.0); CALCIUM, TOTAL 8.1 mg/dL (8.8-10.5); CREATININE 1.2 mg/dL (0.60-1.30); MAGNESIUM 1.9 mg/dL (1.80-2.40); POTASSIUM 3.7 mmol/L (3.5-5.1); TOTAL PROTEIN, SERUM 5.7 g/dL (6.4-8.2)
[2016-06-19 07:52] LABS: PLATELET COUNT (AUTO) 127 K/uL (150-450)
[2016-06-19] MEDS: TIOTROPIUM BROMIDE 18 MCG/INH HANDIHALER [5] IH SCH (08:28)
[2016-06-19] MEDS: PredniSONE 10 MG TABLET PO SCH (08:29)
[2016-06-19] MEDS: AMIODARONE HCL 200 MG TABLET PO SCH ×2 (08:29→20:33)
[2016-06-19] MEDS: DOCUSATE SODIUM 100 MG CAPSULE PO SCH ×2 (08:31→20:33)
[2016-06-19] MEDS: METOPROLOL SUCCINATE 25 MG ER TABLET PO SCH (08:31)
[2016-06-19] MEDS: PANTOPRAZOLE SODIUM 40 MG DR TABLET PO SCH (08:31)
[2016-06-19] MEDS: BUDESONIDE 0.5 MG/2 ML NEB SOLUTION NEB SCH ×2 (08:35→20:02)
[2016-06-19] MEDS ORDERED: FUROSEMIDE 20 MG/2 ML VIAL IVP ONE (09:30)
[2016-06-19] MEDS ORDERED: POTASSIUM CHLORIDE 10% 40 MEQ/30 ML LIQUID UDCUP PO ONE (09:30)
[2016-06-19 11:20] VITALS: BP 148/63
[2016-06-19 15:46] VITALS: BP 150/86
[2016-06-19] MEDS ORDERED: 0.9% SODIUM CHLORIDE 5 ML NEB SOLUTION NEB ONE (19:45)
[2016-06-19 20:38] VITALS: BP 134/50
[2016-06-20] VITALS (7 sets, daily range): BP systolic 126–152; BP diastolic 59–97
[2016-06-20] MEDS: NITROGLYCERIN 2% (1 GM=INCH) PACKET TP SCH ×3 (01:05→16:34)
[2016-06-20] MEDS: BENZONATATE 100 MG CAPSULE PO SCH ×3 (01:05→16:34)
[2016-06-20 07:39] LABS: BASOPHILS # (AUTO) 0.01 K/uL (0.00-0.20); BASOPHILS % (AUTO) 0.1 % (0.0-2.0); EOSINOPHILS # (AUTO) 0.26 K/uL (0.00-0.70); EOSINOPHILS % (AUTO) 2.65 % (1.0-6.0); HEMATOCRIT 46.5 % (41-53); HEMOGLOBIN 15.2 g/dL (13.5-17.5); LYMPHOCYTES # (AUTO) 0.7 K/uL (1.0-4.8); LYMPHOCYTES % (AUTO) 6.5 % (22.0-44.0); MEAN CORPUSCULAR HEMOGLOBIN 30.1 pg (26.0-34.0); MEAN CORPUSCULAR HGB CONC 32.7 G/dL (31.0-37.0); MEAN CORPUSCULAR VOLUME 92 fL (80-100); MONOCYTES % (AUTO) 9.7 % (2.0-9.0); NEUTROPHILS # (AUTO) 8.1 K/uL (1.8-7.7); NEUTROPHILS % (AUTO) 81.1 % (40.0-70.0); PLATELET COUNT (AUTO) 158 K/uL (150-450); RED BLOOD CELL COUNT(AUTO) 5.04 MIL/uL (4.50-5.90); RED CELL DISTRIBUTION WIDTH 14.4 % (11.5-14.5)
[2016-06-20 07:57] LABS: INR 1.2 (0.9-1.1); PROTHROMBIN TIME 13.1 SEC (9.4-11.6)
[2016-06-20 08:08] LABS: ALBUMIN 2.9 g/dL (3.4-5.0); BILIRUBIN,TOTAL 1.3 mg/dL (0.1-1.0); CALCIUM, TOTAL 8.6 mg/dL (8.8-10.5); CREATININE 1.39 mg/dL (0.60-1.30); POTASSIUM 3.9 mmol/L (3.5-5.1); TOTAL PROTEIN, SERUM 6.7 g/dL (6.4-8.2)
[2016-06-20] MEDS: BUDESONIDE 0.5 MG/2 ML NEB SOLUTION NEB SCH ×2 (08:14→20:15)
[2016-06-20] MEDS ORDERED: WARFARIN SODIUM 5 MG TABLET PO ONE ×2 (09:30→17:00)
[2016-06-20] MEDS: ASPIRIN 81 MG CHEWABLE TABLET PO SCH (09:54)
[2016-06-20] MEDS: PANTOPRAZOLE SODIUM 40 MG DR TABLET PO SCH (09:54)
[2016-06-20] MEDS: PredniSONE 10 MG TABLET PO SCH (09:54)
[2016-06-20] MEDS: AMIODARONE HCL 200 MG TABLET PO SCH ×2 (09:54→20:58)
[2016-06-20] MEDS: METOPROLOL SUCCINATE 25 MG ER TABLET PO SCH (09:54)
[2016-06-20] MEDS: CLOPIDOGREL BISULFATE 75 MG TABLET PO SCH (09:54)
[2016-06-20] MEDS: DOCUSATE SODIUM 100 MG CAPSULE PO SCH ×2 (09:55→20:58)
[2016-06-20] MEDS: TIOTROPIUM BROMIDE 18 MCG/INH HANDIHALER [5] IH SCH (09:56)
[2016-06-20] MEDS ORDERED: 0.9% SODIUM CHLORIDE 5 ML NEB SOLUTION NEB ONE (20:05)
[2016-06-21] MEDS: BENZONATATE 100 MG CAPSULE PO SCH ×2 (00:14→09:27)
[2016-06-21] MEDS: NITROGLYCERIN 2% (1 GM=INCH) PACKET TP SCH ×2 (00:14→09:27)
[2016-06-21 04:00] VITALS: BP 144/73
[2016-06-21] MEDS: BUDESONIDE 0.5 MG/2 ML NEB SOLUTION NEB SCH (07:19)
[2016-06-21 07:41] VITALS: BP 157/65
[2016-06-21 07:45] LABS: INR 1.4 (0.9-1.1); PROTHROMBIN TIME 14.3 SEC (9.4-11.6)
[2016-06-21] MEDS ORDERED: WARFARIN SODIUM 2 MG TABLET PO ONE (08:30)
[2016-06-21] MEDS ORDERED: AMIODARONE HCL 200 MG TABLET PO SCH (09:00)
[2016-06-21] MEDS: ASPIRIN 81 MG CHEWABLE TABLET PO SCH (09:27)
[2016-06-21] MEDS: PANTOPRAZOLE SODIUM 40 MG DR TABLET PO SCH (09:28)
[2016-06-21] MEDS: DOCUSATE SODIUM 100 MG CAPSULE PO SCH (09:28)
[2016-06-21] MEDS: PredniSONE 10 MG TABLET PO SCH (09:28)
[2016-06-21] MEDS: METOPROLOL SUCCINATE 25 MG ER TABLET PO SCH (09:28)
[2016-06-21] MEDS: TIOTROPIUM BROMIDE 18 MCG/INH HANDIHALER [5] IH SCH (09:37)
[2016-06-21] MEDS: CLOPIDOGREL BISULFATE 75 MG TABLET PO SCH (09:37)
[2016-06-21] MEDS ORDERED: TIOT185 IH (11:13)
[2016-06-21] MEDS ORDERED: PRED10 PO (11:13)
[2016-06-21] MEDS ORDERED: ALBU8HFA IH (11:13)
[2016-06-21] MEDS ORDERED: PRED10TA3 PO (11:13)
[2016-06-21] MEDS ORDERED: AMIO200T2 PO (11:13)
[2016-06-21] MEDS ORDERED: CLOP75 PO (11:13)
[2016-06-21] MEDS ORDERED: METO-323 PO (11:13)
[2016-06-21] MEDS ORDERED: IPRAHFA IH (11:13)
[2016-06-21] MEDS ORDERED: ASPI81 PO (11:13)
[2016-06-21 11:27] VITALS: BP 147/67
[2016-06-21] MEDS ORDERED: WARF2 PO (12:09)
== END 2016-06-21 15:30 | disposition home or self-care (01) | DRG 242 ==
LOC: EMS 18:35 → 5N 22:00 → ICU 06-16 15:09 → 5S 06-17 12:56
PROVIDERS: ADMIT Internal Medicine; ATTEND Internal Medicine
PROC: 027034Z Dilation of Coronary Artery, One Artery with Drug-eluting Intraluminal Device, Percutaneous Approach (ICD-10-PCS; 2016-06-16)
PROC: 4A023N7 Measurement of Cardiac Sampling and Pressure, Left Heart, Percutaneous Approach (ICD-10-PCS; 2016-06-16)
PROC: B2111ZZ Fluoroscopy of Multiple Coronary Arteries using Low Osmolar Contrast (ICD-10-PCS; 2016-06-16)
PROC: B2181ZZ Fluoroscopy of Left Internal Mammary Bypass Graft using Low Osmolar Contrast (ICD-10-PCS; 2016-06-16)
PROC: 0JH606Z Insertion of Pacemaker, Dual Chamber into Chest Subcutaneous Tissue and Fascia, Open Approach (ICD-10-PCS; principal; 2016-06-18)
PROC: 02H63JZ Insertion of Pacemaker Lead into Right Atrium, Percutaneous Approach (ICD-10-PCS; 2016-06-18)
PROC: 02HK3JZ Insertion of Pacemaker Lead into Right Ventricle, Percutaneous Approach (ICD-10-PCS; 2016-06-18)
DX: I49.5 Sick sinus syndrome (principal); I50.43 Acute on chronic combined systolic (congestive) and diastolic (congestive) heart failure; J96.01 Acute respiratory failure with hypoxia; I13.0 Hypertensive heart and chronic kidney disease with heart failure and stage 1 through stage 4 chronic kidney disease, or unspecified chronic kidney disease; J44.1 Chronic obstructive pulmonary disease with (acute) exacerbation; N17.9 Acute kidney failure, unspecified; I47.2 Ventricular tachycardia; E44.1 Mild protein-calorie malnutrition; I48.92 Unspecified atrial flutter; I42.0 Dilated cardiomyopathy; I25.10 Atherosclerotic heart disease of native coronary artery without angina pectoris; R55 Syncope and collapse; I27.2 Other secondary pulmonary hypertension; E78.5 Hyperlipidemia, unspecified; I25.82 Chronic total occlusion of coronary artery; I48.0 Paroxysmal atrial fibrillation; M10.9 Gout, unspecified; N18.3 Chronic kidney disease, stage 3 (moderate); I25.5 Ischemic cardiomyopathy; D69.6 Thrombocytopenia, unspecified; Z68.26 Body mass index [BMI] 26.0-26.9, adult; Z95.2 Presence of prosthetic heart valve; Z95.4 Presence of other heart-valve replacement; Z79.899 Other long term (current) drug therapy; Z79.01 Long term (current) use of anticoagulants; Z95.5 Presence of coronary angioplasty implant and graft; Z87.891 Personal history of nicotine dependence
CPT/HCPCS: 33208; 71020; 71250; 76000; 82805; 83735; 84100; 87081; 87804; 90471; 92920; 92928; 93005; 93306; 93308; 94640; 94644; 99285; J0282; J0690; J1160; J1644; J1885; J1940; J2250; J2370; J2405; J2704; J2920; J3010; J3430; J3490; J7040; J7050; J7060; Q9967